=== PATIENT | female | born 2000 | race Caucasian/White ===

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

== ENCOUNTER 2019-08-29 12:37 | Emergency (ER) | payer SELFPAY ==
[~2019-08-29] VITALS: Ht 167.6 cm; Wt 50.9 kg
[~2019-08-29 12:37] MED LIST changes: +ALBU2.5V NPPB; +METH4TAB2 PO; +NICO-485 TD
--- NOTE | 2019-08-29 13:03 | NUR ---
Pt here for resp distress starting at home. Per pts S.O. pt has been using home nebs and are givng her no relief. Pt reports she cannot breathe. Her she brething very rapidly, unable to auscultate well as pt is making a wheezing noise with her mouth but for the few seconds pt asked to breath through her nose and out her mouth just coarse lung sounds were heard. Pt denies any trauma. Pt is very anxios and no easily consoled. Pt reports hx of depression and anxiety. Pt on monitors. Pt is not holding still rocking back and forth. Pt in room. Awaiting further orders.
--- NOTE | 2019-08-29 14:21 | NUR ---
Patient/Caregiver given discharge instructions and they have confirmed that they understand the instructions. Patient ambulatory with steady gait.
[2019-08-29 14:22] VITALS: BP 101/60
== END 2019-08-29 14:22 | disposition home or self-care (01) ==
LOC: ED 14:18
DX: J06.9 Acute upper respiratory infection, unspecified (principal); J45.909 Unspecified asthma, uncomplicated; Z90.89 Acquired absence of other organs
CPT/HCPCS: 71046; 99283; Q0177